=== PATIENT | female | born 1995 | race African-American/Black ===

== ENCOUNTER 2018-10-24 22:58 | Emergency (ER) | payer MEDICAID, SELFPAY ==
[2018-10-24 22:59] VITALS: BP 120/92; PULSE 82; RESP 16; TEMP 36.7; O2SAT 100; BMI 43.5
[2018-10-24] MEDS: oxyCODONE 5 MG Tablet PO (23:48)
--- NOTE | 2018-10-25 00:44 | ED.RN ---
THIS NURSE ATTEMPTED X2 FOR IV START, NO SUCCESS, JSOELYN CALLOWAY ATTEMPTED AND NO SUCCESS, DR. VERONICA INFORMED OF SAME. CARBIDE POWDER PROCESSOR WITH PT AT THIS TIME, ATTEMPTING TO OBTAIN LABS. PT REFUSED FEMORAL STICK TO OBTAIN BLOOD.
[2018-10-25 01:17] LABS: Absolute Lymphocyte Count 2.69 X10^3/ul (0.83-4.51); Absolute Neutrophil Count 4.7 X10^3/uL (2.0-7.7); Basophil# 0.02 X10^3/uL; Basophil% 0.2 % (0-1); Eosinophil# 0.16 X10^3/uL; Hemoglobin 11.5 g/dl (12.0-15.0); Immature Platelet Fraction 8.4 % (1.0-7.9); Lymphocyte # 2.69 X10^3/ul (4.0); Lymphocyte % 33.3 % (19-41); Mean Corp Hgb Conc 34.8 g/gl (32-36); Mean Corpuscular Hgb 23.6 pg (27.0-32.0); Mean Corpuscular Volume 67.8 fL (81-99); Monocyte# 0.48 X10^3/uL; Monocyte% 5.9 % (0-10); Neutrophil # 4.71 X10^3/uL (2.7-7.7); Neutrophil % 58.4 % (47-70); Platelet Count 125 K/mm3 (150-450); RBC Distribution Width CV 19.4 % (11.6-14.6); RBC Distribution Width SD 47.8 fl (35.1-43.9); RET-HE 22.3 pg (30-35); Red Blood Count 4.87 M/mm3 (4.2-5.4); Reticulocyte Count 3.05 % (0.5-1.5); White Blood Count 8.1 K/mm3 (4.4-11.0)
[2018-10-25 01:18] LABS: Differential Indicated SCAN CRITERIA MET; POSITIVE COUNT NO; POSITIVE DIFFERENTIAL NO; POSITIVE MORPHOLOGY YES
[2018-10-25 01:31] LABS: Anion Gap 8 (5-15); BUN 7 mg/dL (7-18); BUN/Creat Ratio 12.1 RATIO (10-20); Calcium,Total 8.4 mg/dL (8.5-10.1); Chloride 107 mmol/L (98-107); Creatinine, Serum 0.58 mg/dL (0.55-1.02); EST Glomerular Filtration Rate 138 mL/min (>60); Est Glom Filt Rate - Afr Amer 167 mL/min (>60); Estimated Creatinine Clearance 164.52 ml/min; Glucose 104 mg/dL (74-106); Potassium 3.6 mmol/L (3.5-5.1); Sodium Level 138 mmol/L (136-145)
[2018-10-25 01:36] LABS: Microcytosis 3+; Platelet Estimate SLT DEC (ADEQ)
[2018-10-25 01:37] LABS: Target Cells 2+
[2018-10-25 01:38] LABS: Anisocytosis 2+
[2018-10-25 01:39] LABS: Hypochromasia 1+; Ovalocyte RARE; Polychromasia RARE
--- NOTE | 2018-10-25 01:57 | ED.RN ---
PT CALLED OUT TWICE IN A ROW ASKING FOR PAIN MEDICATION. THIS RN LET THE DOCTOR KNOW AFTER THE FIRST REQUEST. THE MD ACKNOWLEDGED THIS REQUEST.
--- NOTE | 2018-10-25 02:05 | ED.DCSUM_ITS ---
- ER Visit Summary Date of Service: 10/25/18 Chief Complaint: Sickle cell pain History of Present Illness: The patient is a 23 F who presents with sickle cell pain. She complains of bilateral leg pain which is throbbing in nature for the past 2 days. She states that a couple of days ago she had a temperature 100.1 but no fever since that time. She denies any chest pain shortness of breath abdominal pain vomiting diarrhea. No headache. It is previously she saw [facility] however when she turned established any physicians since that time. She states that her prescriptions were provided based on 1 year of refills from [facility]. Physical Examination: Afebrile vitals normal Moist mucous membranes Resting comfortably no distress Heart regular rate and rhythm Lungs are clear Abdomen soft nontender Extremities are not no edema easily palpable and symmetric dorsalis pedis pulses brisk capillary refill Test Results: CBC notable for hemoglobin 11.5, platelets 125. BMP normal. Reticulocyte count 3.05. Emergency Department Course and Treatment: Patient was initially given oral oxycodone here. Despite multiple attempts were unable to establish IV access. Lab was able to draw her blood. Patient's presentation is concerning for drug- seeking behavior. She has an extensive number of prescribers of controlled substances. She has had 59 prescribers. She has had prescriptions filled in multiple cities including [facility]. She was immediately requesting IV Dilaudid with Benadryl. She did appear comfortable through her course here. She ordered and ate pizza during her stay here. On reevaluation she continues to complain of significant pain. We did give her an intramuscular dose of morphine but advised I would not be prescribing medications for home. I stressed the importance of establishing a primary physician. She was given a referral to hematology here. Patient discharged. Treatment Plan: [] Disposition: Discharge Impression: Sickle cell disease This note was generated with [employer] dictation software. It may contain incorrect words, spelling, and punctuation that were not noted in review of the chart prior to signing ED Disposition - Plan for ED Patient: Referrals: Care Physician,No Primary [Primary Care Provider] -
--- NOTE | 2018-10-25 02:10 | ED.DEP ---
ED Disposition - Plan for ED Patient: Instructions: ED Sickle Cell Crisis Pain, ED Chronic Pain Management Referrals: Care Physician,No Primary [Primary Care Provider] - Natasha Ivan MD [STAFF PHYSICIAN] -
[2018-10-25] MEDS: morphine 10 MG/ML Syringe IM (02:33)
[2018-10-25 03:08] VITALS: RESP 16
--- NOTE | 2018-10-25 03:09 | ED.RN ---
PT GIVEN MULTIPLE BEVERAGES ALONG WITH HER D/C INSTRUCTIONS. PT VERBALIZES UNDERSTANDING AND NO FURTHER QUESTIONS
== END 2018-10-25 03:10 | disposition home or self-care (01) ==
PROVIDERS: Emergency Provider Emergency Medicine
DX: D57.1 Sickle-cell disease without crisis (principal)
CPT/HCPCS: 36415; 80048; 85025; 85045; 96372; 99283; J7030; A4216

== ENCOUNTER 2018-10-25 07:48 | Emergency (ER) | payer MEDICAID, SELFPAY ==
[2018-10-24 22:59] VITALS: BMI 43.5
[2018-10-25 07:50] VITALS: BP 91/57; PULSE 89; RESP 18; TEMP 36.2; O2SAT 98; BMI 42.5
--- NOTE | 2018-10-25 08:22 | ED.VISSUMM ---
- ER Visit Summary Date of Service: 10/25/18 Chief Complaint: Bilateral leg pain History of Present Illness: The patient is a 23 F comes to the ED 1 week history nontraumatic bilateral leg pain outer thighs and hip. History of sickle cell anemia. Seen earlier today in the ED at 2 AM was worked up. Requesting Dilaudid, records reviewed, noted was treated for pain with oxycodone. She has NSAID allergy. She refused morphine IM ordered. In addition there was an [facility] report noting 59 prescribers. Discussed with patient she is up to her last 4 days with her sister. First time she is seen here. She states she was seen [facility] at the age of 21 and that was the highest age for them to be seen. She states she did not have a set physician for last 2 years and has been going to the emergency room for her pain. When asked the last time she was seen she states was a couple days ago at [facility] [place] the day after, history yesterday at 5 PM at [facility] in [place] for similar visit. I discussed this with the patient, she states it was not her and somebody else must be using her name and Social Security number. Other complaints she reports dysuria for 2 days. Denies fever or back pain. States her urine was not checked when she was here. Physical Examination: General: Alert and oriented ?3, no acute distress HEENT: Normocephalic, atraumatic. Moist mucosa membranes Neck: supple, nontender. Cardiovascular: Regular rate and rhythm, no murmurs Respiratory: Normal breath sounds, symmetric, no distress Abdomen: Soft, nontender, nondistended Extremities: Nontender, no edema, pulses intact ?4. There is no calf or medial thigh tenderness bilaterally. Neuro: no focal neurological deficits. Test Results: UA: Leukocytes, WBCs 5-10, 3+ bacteria. Urine culture sent. Tox screen opiates. Emergency Department Course and Treatment: Patient vital signs stable, nontoxic. No clinical signs of DVT, pulses intact distally. Patient with physical cycle 3, I did discuss no Dilaudid will be given, discussed morphine 4 mg will be ordered for pain control if she elects to take this. I did send for urine did note leukocytes white blood cells and bacteria. I did send for culture. Tox screen returned with opiates, she is given oxycodone earlier. Interim evaluation of clinisync 4 visits recently, known she was here at 2 AM earlier today. She had a visit twice yesterday at 321, 9 PM at [facility], 2 AM at [facility] in [place]. On the at 9 AM she checked in amount, however left without being seen. September visit on the and the from [facility], [facility], [facility]. From reviewing reports, she signed out AMA from another hospital, went to [place] at that time. patient nitially stating she was never seen at [facility], I did discuss that she likely placed rate please report due to claiming that she did not visit to [facility] at 9 PM yesterday. 0950: Return to evaluate the patient in the room to discuss UTI findings and her visits previously to update her. However patient apparently eloped the department. She was given morphine IM by nursing. Treatment Plan: [] Disposition: Eloped Impression: 1. Sickle cell anemia 2. Chronic pain 3. Urinary tract infection This note was generated with [employer] dictation software. It may contain incorrect words, spelling, and punctuation that were not noted in review of the chart prior to signing ED Disposition - Plan for ED Patient: Disposition: Home or Assisted Living Diagnosis: Sickle cell anemia, Chronic pain, UTI (urinary tract infection) Referrals: Care Physician,No Primary [Primary Care Provider] - Additional Instructions: Patient eloped department after morphine given.
--- NOTE | 2018-10-25 08:28 | ED.DCSUM_ITS ---
- ER Visit Summary Date of Service: 10/25/18 Chief Complaint: Bilateral leg pain History of Present Illness: The patient is a 23 F comes to the ED 1 week history nontraumatic bilateral leg pain outer thighs and hip. History of sickle cell anemia. Seen earlier today in the ED at 2 AM was worked up. Requesting Dilaudid, records reviewed, noted was treated for pain with oxycodone. She has NSAID allergy. She refused morphine IM ordered. In addition there was an [facility] report noting 59 prescribers. Discussed with patient she is up to her last 4 days with her sister. First time she is seen here. She states she was seen [facility] at the age of 21 and that was the highest age for them to be seen. She states she did not have a set physician for last 2 years and has been going to the emergency room for her pain. When asked the last time she was seen she states was a couple days ago at [facility] in [place]. [facility] noted she had a visit the day after, history yesterday at 5 PM at [facility] in [place] for similar visit. I discussed this with the patient, she states it was not her and somebody else must be using her name and Social Security number. Other complaints she reports dysuria for 2 days. Denies fever or back pain. States her urine was not checked when she was here. Physical Examination: General: Alert and oriented ?3, no acute distress HEENT: Normocephalic, atraumatic. Moist mucosa membranes Neck: supple, nontender. Cardiovascular: Regular rate and rhythm, no murmurs Respiratory: Normal breath sounds, symmetric, no distress Abdomen: Soft, nontender, nondistended Extremities: Nontender, no edema, pulses intact ?4. There is no calf or medial thigh tenderness bilaterally. Neuro: no focal neurological deficits. Test Results: UA: Leukocytes, WBCs 5-10, 3+ bacteria. Urine culture sent. Tox screen opiates. Emergency Department Course and Treatment: Patient vital signs stable, nontoxic. No clinical signs of DVT, pulses intact distally. Patient with physical cycle 3, I did discuss no Dilaudid will be given, discussed morphine 4 mg will be ordered for pain control if she elects to take this. I did send for urine did note leukocytes white blood cells and bacteria. I did send for culture. Tox screen returned with opiates, she is given oxycodone earlier. Interim evaluation of clinisync 4 visits recently, known she was here at 2 AM earlier today. She had a visit twice yesterday at 321, 9 PM at [place], 2 AM at [facility] in [place]. On the at 9 AM she checked in amount, however left without being seen. September visit on the and the from [facility], [facility], [facility]. From reviewing reports, she signed out AMA from another hospital, went to [place] at that time. patient nitially stating she was never seen at [place], I did discuss that she likely placed rate please report due to claiming that she did not visit to [place] at 9 PM yesterday. 0950: Return to evaluate the patient in the room to discuss UTI findings and her visits previously to update her. However patient apparently eloped the department. She was given morphine IM by nursing. Treatment Plan: [] Disposition: Eloped Impression: 1. Sickle cell anemia 2. Chronic pain 3. Urinary tract infection This note was generated with [email or web address] dictation software. It may contain incorrect words, spelling, and punctuation that were not noted in review of the chart prior to signing ED Disposition - Plan for ED Patient: Disposition: Home or Assisted Living Diagnosis: Sickle cell anemia, Chronic pain, UTI (urinary tract infection) Referrals: Care Physician,No Primary [Primary Care Provider] - Additional Instructions: Patient eloped department after morphine given.
[2018-10-25] MEDS: Morphine 4 MG/ML Syringe SC (09:09)
[2018-10-25 09:24] LABS: Mucous, Urine 0 SEEN /hpf (<or=2+)
[2018-10-25 09:33] LABS: Color, Urine Yellow (Yellow); Glucose, Dipstick Normal (Normal); Ketone-Dipstick 5 mg/dl (Negative); Leukocyte Esterase-Dipstick 500 /ul (Negative); Nitrite-Dipstick Negative (Negative); Occult Blood-Urine 50 /ul (Negative); Protein-Dipstick Negative (Negative); Urine Bilirubin Dipstick Negative (Negative); Urine Clarity Sl. Cloudy (Clear); Urine Urobilinogen 1 mg/dl (Normal)
[2018-10-25 09:37] LABS: Bacteria 3+ /hpf (None Seen); Red Blood Cells-Urine 0-5 SEEN /hpf (0-5); Squamous Epithelial Cells - UA 0-5 SEEN /hpf (5-10); White Blood Cells 5-10 SEEN /hpf (0-5)
[2018-10-25 09:38] LABS: Amphetamine Urine VISTA NEGATIVE (<1000 ng/mL); Barbiturate Urine VISTA NEGATIVE (< 200 ng/mL); Benzodiazepine Urine VISTA NEGATIVE (< 200 ng/mL); Cocaine Urine VISTA NEGATIVE (< 300 ng/mL); Ecstacy Urine VISTA NEGATIVE (< 500 ng/mL); Methadone Urine VISTA NEGATIVE (< 300 ng/mL); PCP Urine VISTA NEGATIVE (< 25 ng/mL); THC Urine VISTA NEGATIVE (< 50 ng/mL); Vista UDS pH Range 5
--- NOTE | 2018-10-25 10:04 | ED.RN ---
rounding on pt. pt not in room, bathrooms, or unit. left without dc instructions.
== END 2018-10-25 10:06 | disposition home or self-care (01) ==
PROVIDERS: Emergency Provider Emergency Medicine
DX: D57.1 Sickle-cell disease without crisis (principal); G89.29 Other chronic pain; N39.0 Urinary tract infection, site not specified; Z53.21 Procedure and treatment not carried out due to patient leaving prior to being seen by health care provider
CPT/HCPCS: 80307; 81001; 87086; 87088; 96372; 99282